=== PATIENT | female | born 1990 | race American Indian/Alaskan Native ===

== ENCOUNTER 2016-04-03 01:20 | Emergency (ER) | payer MEDICAID ==
[2016-04-03 02:22] LABS: Blood Urea Nitrogen 6 mg/dL (7-17); Carbon Dioxide 24 mmol/L (22-30); Glucose 95 mg/dL (65-100)
[2016-04-03 02:23] LABS: Chloride 102.7 mmol/L (98-107); Sodium 138 mmol/L (137-145)
[2016-04-03 02:32] LABS: Anion Gap 15 mmol/L
[2016-04-03 02:46] LABS: Basophils % (Auto) 0.7 % (0.0-1.8); Eosinophils % (Auto) 1.2 % (0.0-4.3); Hematocrit 37.1 % (30.3-42.9); Hemoglobin 12.5 gm/dl (10.1-14.3); Mean Corpuscular HGB Conc 34 % (30-34); Mean Corpuscular Hemoglobin 31 pg (28-32); Mean Corpuscular Volume 91 fl (79-97); Platelet Count 229 K/mm3 (140-440); Red Blood Count 4.08 M/mm3 (3.65-5.03); Red Cell Distribution Width 13.9 % (13.2-15.2); White Blood Count 6.1 K/mm3 (4.5-11.0)
[2016-04-03 05:29] VITALS: BP 115/70
--- NOTE | 2016-04-04 17:58 | ED Elopement Review ---
ED Pt Elopement review - Results review Lab results: Laboratory Tests 04/03/16 04/03/16 01:50 01:50 WBC 6.1 RBC 4.08 Hgb 12.5 Hct 37.1 MCV 91 MCH 31 MCHC 34 RDW 13.9 Plt Count 229 Lymph % (Auto) 43.2 H [place] % (Auto) 7.5 H Eos % (Auto) 1.2 Baso % (Auto) 0.7 Lymph # 2.6 [place] # 0.5 Eos # 0.1 Baso # 0.0 Seg Neutrophils % 47.4 Seg Neutrophils # 2.9 Sodium 138 Potassium 4.0 Chloride 102.7 Carbon Dioxide 24 Anion Gap 15 BUN 6 L Creatinine 0.6 L Estimated GFR > 60 BUN/Creatinine Ratio 10.00 Glucose 95 Calcium 9.0 Troponin T < 0.010 - Call Back decision Pt Call Back Decision: Pt to F/U with PMD
== END 2016-04-03 01:51 | disposition left against medical advice (07) ==
LOC: ED 01:20
DX: R07.81 Pleurodynia (principal); Z53.21 Procedure and treatment not carried out due to patient leaving prior to being seen by health care provider
CPT/HCPCS: 36415; 80048; 84484; 85025; 93005; 93010